=== PATIENT | male | born 1945 | race Caucasian/White ===

== ENCOUNTER → 2018-12-13 | Outpatient (CLI) | payer OTHER ==
--- NOTE | 2018-12-13 15:19 | DIREP ---
PROCEDURE:CHEST 2 VIEWS COMPARISON:None. INDICATIONS:Encounter for general adult medical examination without abnormal findings FINDINGS: LUNGS/PLEURA:Mild hyperinflation. No focal consolidation, pleural effusion, or pneumothorax. VASCULATURE:Unremarkable pulmonary vasculature. Calcified aortic arch. CARDIAC:Normal. No cardiac silhouette abnormality or cardiomegaly. MEDIASTINUM:Normal. No visible mass or adenopathy. BONES:Degenerative change without evidence of acute osseus abnormality. OTHER:Negative. CONCLUSION: 1. No acute cardiopulmonary process. 2. Mild pulmonary hyperinflation, could represent reactive airways disease versus COPD/emphysema. Dictated by: Duc Rosa MD on 12/13/2018 at 03:18 PM
== END | disposition home or self-care (01) ==
LOC: RAD 12:37
DX: R91.8 Other nonspecific abnormal finding of lung field (principal)
CPT/HCPCS: 71046